=== PATIENT | male | born 1955 | race Caucasian/White ===

== ENCOUNTER 2020-05-18 09:02 | Outpatient (REF) | payer MEDICARE, SELFPAY | END 2020-05-18 09:03 | disposition home or self-care (01) | LOC: HO.HMGCLDS 09:02 | PROVIDERS: PCP Internal Medicine; Visit Provider Internal Medicine | DX: Z20.828 Contact with and (suspected) exposure to other viral communicable diseases (principal) | CPT/HCPCS: C9803; U0003 ==

== ENCOUNTER 2020-05-19 07:46 | Outpatient (REF) | payer MEDICARE, SELFPAY ==
[2020-05-19 12:04] LABS: SARS COV2 IgG Negative (Negative)
== END 2020-05-19 07:47 | disposition home or self-care (01) ==
LOC: HO.HMGCLDS 07:46
PROVIDERS: PCP Internal Medicine; Visit Provider Internal Medicine
DX: Z20.828 Contact with and (suspected) exposure to other viral communicable diseases (principal)
CPT/HCPCS: 86769